=== PATIENT | female | born 1955 | race Caucasian/White ===

== ENCOUNTER → 2016-06-15 | Outpatient (CLI) | payer OTHER ==
--- NOTE | 2016-06-16 11:19 | DX ---
DEXA Bone Mineral Densitometry Clinical Indications: Osteoporosis screening in a postmenopausal female . Followup low bone density i n a 61-year-old female with a family history of osteoporosis an a personal history of Synthroid thera py. The patient has had a traumatic L2 fracture. Comparison: March 20, 2013. Technique: Bone Mineral Densitometry (BMD) by Dual Energy X-Ray Absorptiometry (DEXA) was performed u tilizing the [employer] scanner. The lumbar spine was evaluated in the AP projection. The bilate ral hips and left forearm were evaluated in the AP projection. Vertebral fracture assessment was also performed. AP Lumbar Spine: The L3 and L4 vertebral bodies were evaluated. BMD: 1.011 gm/cm2 T-score: -1.6 SD Z-score: -1.1 SD Not previously evaluated secondary to L2 compression fracture. AP Left Hip: Femoral neck. BMD: 0.887 gm/cm2 T-score: -1.1 SD Z-score: -0.3 SD Not significantly changed. AP Right Hip: Femoral neck. BMD: 0.873 gm/cm2 T-score: -1.2 SD Z-score: -0.4 SD Not significantly changed. AP Left Forearm, 06/07: BMD: 0.738 gm/cm2 T-score: -1.6 SD Z-score: -0.7 SD Not significantly changed. Vertebral Fracture Assessment: No new compression deformities are seen. The L2 compression fracture i s stable in appearance and the patient states that there was a history of trauma associated with the fracture. Conclusion: Considering the lowest measured site, the patient's bone density is low; osteopenic ( -2. 5 < T-score < -1 ). The ten year risk for any major osteoporotic fracture is 24.1% and for a hip fracture is 0.9%. Any bone loss in this patient is probably related to aging or estrogen deficiency. Recommendations: To prevent osteoporosis and to promote bone density, consider the following recommen dations: 1. Pursue a regular regimen of weightbearing and muscle strengthening exercises. 2. Optimize daily calcium intake. 3. Check serum hydroxy vitamin D3 (normal >30ng/ml). 4. Ensure daily intake of vitamin D is 800 international units. 5. Consider follow-up DEXA scan in two years to assess the rate of bone loss in this patient. 6. Consider excluding common secondary causes of bone loss, if not already performed. 7. Given the increased risk of major osteoporotic fracture, antiresorptive therapy could be considere d.
== END ==
LOC: FIMAGING 13:09
PROVIDERS: ATTEND Family Medicine
DX: Z13.820 Encounter for screening for osteoporosis (principal); M85.80 Other specified disorders of bone density and structure, unspecified site; Z82.62 Family history of osteoporosis